=== PATIENT | male | born 1970 | race Caucasian/White ===

== ENCOUNTER 2017-01-19 11:06 | Inpatient (IN) | payer OTHER ==
[2017-01-19 13:21] VITALS: BMI 19.2
--- NOTE | 2017-01-19 17:37 | HP ---
COWS - Scale Resting Pulse: 0= [place] 80 or Below Sweatin= Chills/Flushing Restless Observation: 1= Difficult to Sit Still Pupil Size: 1= Pupils >than Normal Bone or Joint Aches: 1= Mild Discomfort Runny Nose/ Eye Tearin= Nasal Congestion GI Upset > 30mins: 2= Nausea/Diarrhea Tremor Observation: 2= Slight Tremor Visible Yawning Observation: 1= 1-2x During Session Anxiety or Irritability: 2=Irritable/Anxious Goose Flesh Skin: 3=Piloerection COWS Score: 15 Admission [facility] Chief Complaint: heroin withdrawal sx Allergies/Adverse Reactions: Allergies Allergy/AdvReac Type Severity Reaction Status Date / Time No Known Allergies Allergy Verified 01/19/17 15:03 History of Present Illness: 46 yo m with h/o opioi d use disorder, first admission to [place] for detoxification from heroin c/ heroin withdrwal sx. Last used yesterday. Denies alcohol , smokes mairjua and nciotine occasionally. PMHX asthmatic, GERD , bipolar do on meds nbut not taking them no suicidal ideation no suicide attempts in the past. no h/o seizures or DTS. Exam Limitations: No Limitations - Ebola screening Have you traveled outside of the country in the last 21 days: No (N) Have you had contact with anyone from an Ebola affected area: No Have you been sick,other than usual withdrawal symptoms: No Do you have a fever: No - Review of Systems Constitutional: Chills, Diaphoresis, Malaise, Changes in sleep, Unintentional Wgt. Loss EENT: reports: Blurred Vision (right 2/2 trauma as child, scarring noted on exam ), Nose Congestion Respiratory: reports: Wheezing (asthma) Cardiac: reports: No Symptoms Reported GI: reports: Diarrhea, Nausea, Poor Appetite, Poor Fluid Intake, Vomiting, Indigestion, Abdominal cramping : reports: No Symptoms Reported Musculoskeletal: reports: Back Pain, Muscle Pain, Muscle Weakness, Neck Pain ( withdrawl sx) Integumentary: reports: Flushing, Sweating Neuro: reports: Headache (migraine), Numbness, Paresthesia, Tremors, Weakness Endocrine: reports: No Symptoms Reported Hematology: reports: No Symptoms Reported Psychiatric: reports: Judgement Intact, Mood/Affect Appropiate, Orientated x3, Anxious, Depressed Patient History - Patient Medical History Hx Anemia: No Hx Asthma: Yes Hx Chronic Obstructive Pulmonary Disease (COPD): No Hx Cancer: No Hx Cardiac Disorders: No Hx Congestive Heart Failure: No Hx Hypertension: No Hx Hypercholesterolemia: No Hx Pacemaker: No HX Cerebrovascular Accident: No Hx Seizures: No Hx Dementia: No Hx Diabetes: No Hx Gastrointestinal Disorders: Yes (acid reflux) Hx Liver Disease: No Hx Genitourinary Disorders: No Hx Sexually Transmitted Disorders: No Hx Renal Disease (ESRD): No Hx Hepatitis C: No Hx Depression: Yes Hx Suicide Attempt: No Hx Bipolar Disorder: Yes Hx Schizophrenia: No Other Medical History: no suicidal ideation at this time - Patient Surgical History Past Surgical History: Yes Hx Neurologic Surgery: No Hx Cataract Extraction: No Hx Cardiac Surgery: No Hx Lung Surgery: No Hx Breast Surgery: No Hx Breast Biopsy: No Hx Abdominal Surgery: No Hx Appendectomy: No Hx Cholecystectomy: No Hx Genitourinary Surgery: No Hx Section: No Hx Orthopedic Surgery: No Other Surgical History: right eye/fx, right orbit at age 8 Anesthesia Reaction: No - PPD History Previous Implant?: Yes Documented Results: Negative w/o proof Implanted On Prior R Admission?: No PPD to be Administered?: Yes - Reproductive History Patient is a Female of Child Bearing Age (11 -55 yrs old): No Patient : No - Smoking Cessation Smoking history: Current every day smoker Have you smoked in the past 12 months: Yes Aproximately how many cigarettes per day: 5 Hx Chewing Tobacco Use: No Initiated information on smoking cessation: Yes 'Breaking Loose' booklet given: 01/19/17 - Substance & Tx. History Hx Alcohol Use: No Hx Substance Use: Yes Substance Use Type: Heroin, Marijuana, Opiates, Prescribed Hx Substance Use Treatment: Yes (project return , not in treatment at present, 1st episode at [facility]) - Substances Abused Heroin Route: Inhalation Frequency: Daily Amount used: 3-4 bags Age of first use: 27 Date of Last Use: 01/18/17 Marijuana Route: Smoking Frequency: 1-2 times per week Amount used: $10 Age of first use: 14 Date of Last Use: 01/19/17 Family Disease History - Family Disease History Family Disease History: Heart Disease: Father (alcoholism ), Other: Father Admission Physical Exam BHS - Vital Signs Vital Signs: Vital Signs - 24 hr 11/30/17 13:19 Temperature 97.1 F L Pulse Rate 71 Respiratory 20 Rate Blood Pressure 131/65 - Physical General Appearance: Yes: Nourished, Appropriately Dressed, Disheveled, Moderate Distress, Thin, Tremorous, Irritable, Sweating, Anxious HEENTM: Yes: EOMI, Hearing grossly Normal, Normocephalic, Normal Voice, EDILMA, Pharynx Normal, Nasal Congestion, Rhinorrhea Respiratory: Yes: Within Normal Limits, Chest Non-Tender, Lungs Clear, Normal Breath Sounds, No Respiratory Distress, No Accessory Muscle Use Neck: Yes: Within Normal Limits, No masses,lesions,Nodules, Supple, Trachea in good position Breast: Yes: Breast Exam Deferred Cardiology: Yes: Within Normal Limits, Regular Rhythm, Regular Rate, S1, S2 Abdominal: Yes: Normal Bowel Sounds, Non Tender, Soft, Increased Bowel Sounds Genitourinary: Yes: Within Normal Limits Back: Yes: Within Normal Limits, Normal Inspection Musculoskeletal: Yes: full range of Motion, Gait Steady, Pelvis Stable, Back pain, Muscle Pain Extremities: Yes: Normal Capillary Refill, Normal Range of Motion, Non-Tender, Tremors Neurological: Yes: coke oven patcher II-XII NML intact, Fully Oriented, Alert, Motor Strength 5/5, Normal Response, Depressed Affect Integumentary: Yes: Normal Color, Warm, Diaphoresis, Moist Lymphatic: Yes: Within Normal Limits - Addiitonal Findings: opioid withdrawal sx noted. - Diagnostic (1) Opioid dependence with withdrawal Current Visit: Yes Status: Acute (2) Nicotine dependence Current Visit: Yes Status: Acute (3) Anxiety Current Visit: Yes Status: Acute (4) Depression Current Visit: Yes Status: Acute (5) Insomnia Current Visit: Yes Status: Acute (6) Cannabis abuse Current Visit: Yes Status: Acute (7) Asthma Current Visit: Yes Status: Acute Cleared for Admission [facility] - Detox or Rehab [facility] Level of Care: Medically Managed Detox Regimen/Protocol: Methadone [facility] Breath Alcohol Content Breath Alcohol Content: 0 Urine Drug Screen - Results Drug Screen Negative: No Urine Drug Screen Results: THC-Marijuana, OPI-Opiates, MET-Methamphetamine, MTD- Methadone
[2017-01-19] MEDS ORDERED: IBUPROFEN 400 MG TABLET (FP) PO PRN (17:39)
[2017-01-19] MEDS ORDERED: guaiFENesin/D-METHORPHAN HB 10 ML UNIT-DOSE CUPS PO PRN (17:39)
[2017-01-19] MEDS ORDERED: MAGNESIUM CITRATE 300 ML BOTTLE PO PRN (17:39)
[2017-01-19] MEDS ORDERED: MENTHOL/PHENOL 1 EACH UD MM PRN (17:39)
[2017-01-19] MEDS ORDERED: hydrOXYzine PAMOATE 50 MG CAPSULE (FP) PO PRN (17:39)
[2017-01-19] MEDS ORDERED: LOPERAMIDE HCL 2 MG CAPSULE PO PRN (17:39)
[2017-01-19] MEDS ORDERED: MAGNESIUM HYDROX 2400MG/30ML ORAL SUSPENSION 30 ML CUP PO PRN (17:39)
[2017-01-19] MEDS ORDERED: MAG HYDROX/AL HYDROX/SIMETH 30 ML UNIT-DOSE CUP PO PRN (17:39)
[2017-01-19] MEDS ORDERED: P-EPHED 60MG/TRIPROLIDI 2.5MG TABLET PO PRN (17:39)
[2017-01-19] MEDS ORDERED: ALBUTEROL SO4 18 GM HFA INHALER IH PRN (17:41)
[2017-01-19] MEDS ORDERED: ONDANSETRON *ODT* 4 MG TABLET SL PRN (17:46)
[2017-01-19] MEDS ORDERED: METHADONE HCL 10 MG TABLET (FOR DETOX USE ONLY) PO ONE ×2 (18:00→23:00)
[2017-01-19] MEDS ORDERED: ONDANSETRON *ODT* 4 MG TABLET SL ONE (18:00)
[2017-01-19] MEDS: PANTOPRAZOLE 40 MG TABLET (FP) PO SCH (18:25)
[2017-01-19] MEDS: NICOTINE 14 MG/24 HOURS TOPICAL PATCH TD SCH (18:25)
[2017-01-19] MEDS: diazePAM 5 MG TABLET PO PRN ×2 (18:25→22:27)
[2017-01-19] MEDS: THIAMINE HCL 100 MG TABLET (FP) PO SCH (22:27)
[2017-01-20 03:46] LABS: URINE APPEARANCE SLCLOUDY; URINE BILIRUBIN NEGATIVE (NEGATIVE); URINE BLOOD NEGATIVE (NEGATIVE); URINE COLOR YELLOW; URINE GLUCOSE (UA) NEGATIVE (NEGATIVE); URINE KETONE NEGATIVE (NEGATIVE); URINE NITRITE NEGATIVE (NEGATIVE); URINE PROTEIN NEGATIVE (NEGATIVE); URINE UROBILINOGEN NEGATIVE mg/dL (0.2-1.0)
[2017-01-20 09:55] LABS: MCH 29.3 pg (25.7-33.7); MCHC 33.3 g/dl (32.0-35.9); MEAN CELL VOLUME 87.8 fl (80-96); MEAN PLT VOLUME 7.5 fl (7.5-11.1); PLATELET COUNT 576 K/MM3 (134-434); RDW 14.7 % (11.9-15.9); WHITE BLOOD COUNT 12.9 K/mm3 (4.0-10.0)
[2017-01-20] MEDS ORDERED: METHADONE HCL 10 MG TABLET (FOR DETOX USE ONLY) PO ONE (10:00)
--- NOTE | 2017-01-20 10:14 | EKG ---
Test Reason : Blood Pressure : / mmHG Vent. Rate : 072 BPM Atrial Rate : 072 BPM P-R Int : 148 ms QRS Dur : 088 ms QT Int : 386 ms P-R-T Axes : 068 044 060 degrees QTc Int : 422 ms NORMAL SINUS RHYTHM POSSIBLE LEFT ATRIAL ENLARGEMENT EARLY REPOLARIZATION NO PREVIOUS ECGS AVAILABLE Confirmed by CLIFF CACERES, MICHAEL ([id number]) on 01/20/2017 10:14:37 AM Referred By: VINCE BENNETT Confirmed By:MICHAEL CORONADO MD
[2017-01-20 10:17] LABS: URINE LEUK ESTERASE Negative (NEGATIVE)
[2017-01-20] MEDS: diazePAM 5 MG TABLET PO PRN ×2 (10:25→22:19)
[2017-01-20] MEDS: PRENATAL VITAMINS W/ FOLIC ACID TABLET (FP) PO SCH (10:25)
[2017-01-20 10:26] LABS: ALBUMIN 3.9 g/dl (3.4-5.0); ALK PHOS 86 U/L (45-117); ANION GAP 4 (8-16); BILIRUBIN,TOTAL 0.4 mg/dL (0.2-1.0); CALCIUM 9.3 mg/dL (8.5-10.1); CO2 32 mmol/L (21-32); CREATININE 0.8 mg/dL (0.7-1.3); GLUCOSE,RANDOM 115 mg/dL (74-106); SGOT/AST 8 U/L (15-37); SGPT/ALT 16 U/L (12-78); TOT PROT 7.6 g/dl (6.4-8.2)
[2017-01-20] MEDS: PANTOPRAZOLE 40 MG TABLET (FP) PO SCH (10:26)
--- NOTE | 2017-01-20 10:41 | CONSULT ---
[facility] Psychiatric Consult - Data Date of interview: 01/20/17 Admission source: [facility] Identifying data: First admission to [facility] for this 46 y/o male seeking detox treatment on for heroin and marihuana dependence.Patient is single without children,domiciled,unemployed and supported on SSI benefits. Substance Abuse History: Discussed with patient in this session.Confirmed this [facility] report : Smoking history: Current every day smoker. Have you smoked in the past 12 months: Yes. Aproximately how many cigarettes per day: 5. Hx Chewing Tobacco Use: No. Initiated information on smoking cessation: Yes. ' Breaking Loose' booklet given: 01/19/17. - Substance & Tx. History. Hx Alcohol Use: No. Hx Substance Use: Yes. Substance Use Type: Heroin, Marijuana , Opiates, Prescribed. Hx Substance Use Treatment: Yes (project return , not in treatment at present, 1st episode at [facility]). - Substances Abused. Heroin. Route: Inhalation. Frequency: Daily. Amount used: 3-4 bags. Age of first use: 27. Date of Last Use: 01/18/17. Marijuana. Route: Smoking. Frequency: 1-2 times per week. Amount used: $10. Age of first use: 14. Date of Last Use: 01/19/17 Medical History: Bronchial asthma and remote history of surgery for fracture of right orbit (fixed eyelid). Psychiatric History: Diagnosed with Bipolar Disorder.Prescribed seroquel as per self-report." I am on a low dose." Mr Gutierrez indicates that he gets his outpatient [facility] in [facility].Fills his prescriptions at the [facility].No reported history of psychiatric hospitalizations.Patient denies history of suicide attempts. Physical/Sexual Abuse/Trauma History: Patient denies. Additional Comment: Urine Drug Screen Results: THC-Marijuana, OPI-Opiates, MET- Methamphetamine, MTD-Methadone.Noted. Mental Status Exam - Mental Status Exam Alert and Oriented to: Time, Place, Person Cognitive Function: Good Patient Appearance: Unkempt, Disheveled Mood: Hopeful, Euthymic Affect: Appropriate, Normal Range Patient Behavior: Fatigued, Cooperative Speech Pattern: Clear, Appropriate Voice Loudness: Normal Thought Process: Goal Oriented Thought Disorder: Not Present Hallucinations: Denies Suicidal Ideation: Denies Homicidal Ideation: Denies Insight/Judgement: Poor Sleep: Poorly, Difficulty falling asleep Appetite: Good Muscle strength/Tone: Normal Gait/Station: Normal Psychiatric Findings - Problem List ([place] 1, 2,3) (1) Opioid dependence with withdrawal Current Visit: Yes Status: Acute (2) Cannabis abuse Current Visit: Yes Status: Acute (3) Nicotine dependence Current Visit: Yes Status: Acute Qualifiers: Nicotine product type: cigarettes Substance use status: in withdrawal Qualified Code(s): F17.213 - Nicotine dependence, cigarettes, with withdrawal (4) Substance induced mood disorder Current Visit: Yes Status: Acute (5) Insomnia Current Visit: Yes Status: Acute Qualifiers: Insomnia type: unspecified Qualified Code(s): G47.00 - Insomnia, unspecified - Initial Treatment Plan Initial Treatment Plan: Psychoeducation.Detoxification.Sleep hygiene recommended.Contact established with pharmacist at [phone] with patient's verbal authorization : last scripts (zoloft 25 mg/day + zyprexa 10 mg/hs) were picked from [facility] September 2015.Patient admits to chronic non- adherence to medications (no recall of names or doses).Will resume mg po hs and observe response.Side effcst/benfits discussed with the patient.He is in agreement with this careplan.
[2017-01-20] MEDS: NICOTINE 14 MG/24 HOURS TOPICAL PATCH TD SCH (10:56)
--- NOTE | 2017-01-20 11:10 | PN ---
BHS COWS - Scale Resting Pulse: 1= [place] 81-100 Sweatin= Chills/Flushing Restless Observation: 3= Extraneous Movement Pupil Size: 2= Moderately Dilated Bone or Joint Aches: 2= Severe Diffuse Aches Runny Nose/ Eye Tearin= Nasal Congestion GI Upset > 30mins: 0= None Tremor Observation of Outstretched Hands: 1= Tremor [place], Not Seen Yawning Observation: 1= 1-2x During Session Anxiety or Irritability: 2=Irritable/Anxious Goose Flesh Skin: 0=Smooth Skin COWS Score: 14 BHS Progress Note (SOAP) Subjective: ANXIETY,SWEATS/CHILLS,"SLIGHTLY GROGGY". Objective: 01/20/17 11:09 Vital Signs Temperature 98.1 F 01/20/17 10:00 Pulse Rate 67 01/20/17 10:00 Respiratory Rate 18 01/20/17 10:00 Blood Pressure 108/65 01/20/17 10:00 O2 Sat by Pulse Oximetry (%) Laboratory Last Values WBC 12.9 K/mm3 (4.0-10.0) H 01/20/17 06:00 RBC 4.49 M/mm3 (4.00-5.60) 01/20/17 06:00 Hgb 13.1 GM/dL (11.7-16.9) 01/20/17 06:00 Hct 39.4 % (35.4-49) 01/20/17 06:00 MCV 87.8 fl (80-96) 01/20/17 06:00 MCH 29.3 pg (25.7-33.7) 01/20/17 06:00 MCHC 33.3 g/dl (32.0-35.9) 01/20/17 06:00 RDW 14.7 % (11.9-15.9) 01/20/17 06:00 Plt Count 576 K/MM3 (134-434) H 01/20/17 06:00 MPV 7.5 fl (7.5-11.1) 01/20/17 06:00 Sodium 136 mmol/L (136-145) 01/20/17 06:00 Potassium 4.6 mmol/L (3.5-5.1) 01/20/17 06:00 Chloride 100 mmol/L (98-107) 01/20/17 06:00 Carbon Dioxide 32 mmol/L (21-32) 01/20/17 06:00 Anion Gap 4 (8-16) L 01/20/17 06:00 BUN 10 mg/dL (7-18) 01/20/17 06:00 Creatinine 0.8 mg/dL (0.7-1.3) 01/20/17 06:00 Creat Clearance w eGFR > 60 (>60) 01/20/17 06:00 Random Glucose 115 mg/dL (74-106) H 01/20/17 06:00 Calcium 9.3 mg/dL (8.5-10.1) 01/20/17 06:00 Total Bilirubin 0.4 mg/dL (0.2-1.0) 01/20/17 06:00 AST 8 U/L (15-37) L 01/20/17 06:00 ALT 16 U/L (12-78) 01/20/17 06:00 Alkaline Phosphatase 86 U/L (45-117) 01/20/17 06:00 Total Protein 7.6 g/dl (6.4-8.2) 01/20/17 06:00 Albumin 3.9 g/dl (3.4-5.0) 01/20/17 06:00 Urine Color Yellow 01/20/17 00:00 Urine Appearance Slcloudy 01/20/17 00:00 Urine pH 5.0 (5.0-8.0) 01/20/17 00:00 Ur Specific [place] 1.029 (1.001-1.035) 01/20/17 00:00 Urine Protein Negative (NEGATIVE) 01/20/17 00:00 Urine Glucose (UA) Negative (NEGATIVE) 01/20/17 00:00 Urine Ketones Negative (NEGATIVE) 01/20/17 00:00 Urine Blood Negative (NEGATIVE) 01/20/17 00:00 Urine Nitrite Negative (NEGATIVE) 01/20/17 00:00 Urine Bilirubin Negative (NEGATIVE) 01/20/17 00:00 Urine Urobilinogen Negative mg/dL (0.2-1.0) 01/20/17 00:00 Ur Leukocyte Esterase Negative (NEGATIVE) 01/20/17 00:00 Assessment: 01/20/17 11:09 WITHDRAWAL SX Plan: CONTINUE DETOX
[2017-01-20] MEDS: NICOTINE POLACRILEX 2 MG GUM BC PRN (18:13)
[2017-01-20] MEDS: QUEtiapine FUMARATE 50 MG TABLET PO SCH (22:18)
[2017-01-20] MEDS: THIAMINE HCL 100 MG TABLET (FP) PO SCH (22:19)
[2017-01-21] MEDS ORDERED: METHADONE HCL 5 MG TABLET (FOR DETOX USE ONLY) PO ONE (10:00)
[2017-01-21] MEDS: PRENATAL VITAMINS W/ FOLIC ACID TABLET (FP) PO SCH (10:25)
[2017-01-21] MEDS: NICOTINE 14 MG/24 HOURS TOPICAL PATCH TD SCH (10:25)
[2017-01-21] MEDS: PANTOPRAZOLE 40 MG TABLET (FP) PO SCH (10:25)
[2017-01-21] MEDS: NICOTINE POLACRILEX 2 MG GUM BC PRN (10:25)
[2017-01-21] MEDS: diazePAM 5 MG TABLET PO PRN ×2 (10:26→22:28)
--- NOTE | 2017-01-21 16:31 | PN ---
S COWS - Scale Resting Pulse: 0= [place] 80 or Below Sweatin= No chills or Flushing Restless Observation: 3= Extraneous Movement Pupil Size: 0= Normal to Room Light Bone or Joint Aches: 2= Severe Diffuse Aches Runny Nose/ Eye Tearin= Nasal Congestion GI Upset > 30mins: 0= None Tremor Observation of Outstretched Hands: 2= Slight Tremor Visible Yawning Observation: 1= 1-2x During Session Anxiety or Irritability: 2=Irritable/Anxious Goose Flesh Skin: 3=Piloerection COWS Score: 14 S Progress Note (SOAP) Subjective: Body Aches, Anxious, Tremors. Objective: PT. A & O X 3, OBSERVED AMBULATING ON UNITY. NO ACUTE DISTRESS. 01/21/17 16:30 Vital Signs Temperature 96.9 F L 01/21/17 13:12 Pulse Rate 76 01/21/17 13:12 Respiratory Rate 16 01/21/17 13:12 Blood Pressure 98/69 01/21/17 13:12 O2 Sat by Pulse Oximetry (%) Laboratory Tests 01/20/17 01/20/17 01/20/17 00:00 06:00 06:00 WBC 12.9 H RBC 4.49 Hgb 13.1 Hct 39.4 MCV 87.8 MCH 29.3 MCHC 33.3 RDW 14.7 Plt Count 576 H MPV 7.5 Sodium 136 Potassium 4.6 Chloride 100 Carbon Dioxide 32 Anion Gap 4 L BUN 10 Creatinine 0.8 Creat Clearance w eGFR > 60 Random Glucose 115 H Calcium 9.3 Total Bilirubin 0.4 AST 8 L ALT 16 Alkaline Phosphatase 86 Total Protein 7.6 Albumin 3.9 Urine Color Yellow Urine Appearance Slcloudy Urine pH 5.0 Ur Specific [place] 1.029 Urine Protein Negative Urine Glucose (UA) Negative Urine Ketones Negative Urine Blood Negative Urine Nitrite Negative Urine Bilirubin Negative Urine Urobilinogen Negative Ur Leukocyte Esterase Negative RPR Titer 01/20/17 06:00 WBC RBC Hgb Hct MCV MCH MCHC RDW Plt Count MPV Sodium Potassium Chloride Carbon Dioxide Anion Gap BUN Creatinine Creat Clearance w eGFR Random Glucose Calcium Total Bilirubin AST ALT Alkaline Phosphatase Total Protein Albumin Urine Color Urine Appearance Urine pH Ur Specific [place] Urine Protein Urine Glucose (UA) Urine Ketones Urine Blood Urine Nitrite Urine Bilirubin Urine Urobilinogen Ur Leukocyte Esterase RPR Titer Nonreactive LABS NOTED. Assessment: 01/21/17 16:30 WITHDRAWAL SYMPTOMS. Plan: CONTINUE DETOX. PRN FLEXERIL PO FOR MUSCLE SPASMS / BODY ACHES. INCREASE DAILY PO FLUID INTAKE.
[2017-01-21] MEDS: QUEtiapine FUMARATE 50 MG TABLET PO SCH (22:27)
[2017-01-21] MEDS: THIAMINE HCL 100 MG TABLET (FP) PO SCH (22:27)
[2017-01-22] MEDS ORDERED: METHADONE HCL 5 MG TABLET (FOR DETOX USE ONLY) PO ONE (10:00)
[2017-01-22] MEDS: PRENATAL VITAMINS W/ FOLIC ACID TABLET (FP) PO SCH (10:47)
[2017-01-22] MEDS: PANTOPRAZOLE 40 MG TABLET (FP) PO SCH (10:47)
[2017-01-22] MEDS: NICOTINE 14 MG/24 HOURS TOPICAL PATCH TD SCH (10:48)
[2017-01-22] MEDS: diazePAM 5 MG TABLET PO PRN ×2 (10:50→17:09)
[2017-01-22] MEDS: NICOTINE POLACRILEX 2 MG GUM BC PRN (10:52)
--- NOTE | 2017-01-22 13:25 | PN ---
BHS Progress Note (SOAP) Subjective: Tremor, interrupted sleep, body ache, bone pain Objective: 01/22/17 13:22 Last Vital Signs Temp Pulse Resp BP Pulse Ox 97.4 F L 72 18 105/68 01/22/17 13:08 01/22/17 13:08 01/22/17 13:08 01/22/17 13:08 Laboratory Tests 01/20/17 01/20/17 01/20/17 00:00 06:00 06:00 WBC 12.9 H RBC 4.49 Hgb 13.1 Hct 39.4 MCV 87.8 MCH 29.3 MCHC 33.3 RDW 14.7 Plt Count 576 H MPV 7.5 Sodium 136 Potassium 4.6 Chloride 100 Carbon Dioxide 32 Anion Gap 4 L BUN 10 Creatinine 0.8 Creat Clearance w eGFR > 60 Random Glucose 115 H Calcium 9.3 Total Bilirubin 0.4 AST 8 L ALT 16 Alkaline Phosphatase 86 Total Protein 7.6 Albumin 3.9 Urine Color Yellow Urine Appearance Slcloudy Urine pH 5.0 Ur Specific [place] 1.029 Urine Protein Negative Urine Glucose (UA) Negative Urine Ketones Negative Urine Blood Negative Urine Nitrite Negative Urine Bilirubin Negative Urine Urobilinogen Negative Ur Leukocyte Esterase Negative RPR Titer 01/20/17 06:00 WBC RBC Hgb Hct MCV MCH MCHC RDW Plt Count MPV Sodium Potassium Chloride Carbon Dioxide Anion Gap BUN Creatinine Creat Clearance w eGFR Random Glucose Calcium Total Bilirubin AST ALT Alkaline Phosphatase Total Protein Albumin Urine Color Urine Appearance Urine pH Ur Specific [place] Urine Protein Urine Glucose (UA) Urine Ketones Urine Blood Urine Nitrite Urine Bilirubin Urine Urobilinogen Ur Leukocyte Esterase RPR Titer Nonreactive Labs noted: wbc 12.9 Assessment: 01/22/17 13:23 Withdrawal symptoms Noted with leukocytosis Plan: Continue detox Leukocytosis: asymptomatic for infection, repeat CBC
[2017-01-22] MEDS: THIAMINE HCL 100 MG TABLET (FP) PO SCH (22:25)
[2017-01-22] MEDS: CYCLOBENZAPRINE HCL 5 MG TABLET PO PRN (22:25)
[2017-01-22] MEDS: QUEtiapine FUMARATE 50 MG TABLET PO SCH (22:26)
[2017-01-23] MEDS ORDERED: METHADONE HCL 10 MG TABLET (FOR DETOX USE ONLY) PO ONE (10:00)
[2017-01-23 10:01] LABS: BASOPHIL 0.7 % (0-2.0); EOSINOPHIL 4.7 % (0-4.5); MCH 29.2 pg (25.7-33.7); MCHC 33.5 g/dl (32.0-35.9); MEAN CELL VOLUME 87.2 fl (80-96); MEAN PLT VOLUME 7.4 fl (7.5-11.1); NEUTROPHILS 52.1 % (42.8-82.8); PLATELET COUNT 455 K/MM3 (134-434); RDW 14.7 % (11.9-15.9); WHITE BLOOD COUNT 8.3 K/mm3 (4.0-10.0)
[2017-01-23] MEDS: PANTOPRAZOLE 40 MG TABLET (FP) PO SCH (10:28)
[2017-01-23] MEDS: NICOTINE 14 MG/24 HOURS TOPICAL PATCH TD SCH (10:28)
[2017-01-23] MEDS: PRENATAL VITAMINS W/ FOLIC ACID TABLET (FP) PO SCH (10:28)
[2017-01-23] MEDS: NICOTINE POLACRILEX 2 MG GUM BC PRN (10:30)
--- NOTE | 2017-01-23 13:54 | PN ---
BHS Progress Note (SOAP) Subjective: Anxious, sweating, Body Aches, Interrupted Sleep. Objective: PT. A & O X 3, OBSERVED AMBULATING ON UNIT. NO ACUTE DISTRESS. 01/23/17 13:53 Vital Signs Temperature 98.0 F 01/23/17 13:43 Pulse Rate 77 01/23/17 13:43 Respiratory Rate 20 01/23/17 13:43 Blood Pressure 107/64 01/23/17 13:43 O2 Sat by Pulse Oximetry (%) Laboratory Tests 01/20/17 01/20/17 01/20/17 00:00 06:00 06:00 WBC 12.9 H RBC 4.49 Hgb 13.1 Hct 39.4 MCV 87.8 MCH 29.3 MCHC 33.3 RDW 14.7 Plt Count 576 H MPV 7.5 Neutrophils % Lymphocytes % Monocytes % Eosinophils % Basophils % Sodium 136 Potassium 4.6 Chloride 100 Carbon Dioxide 32 Anion Gap 4 L BUN 10 Creatinine 0.8 Creat Clearance w eGFR > 60 Random Glucose 115 H Calcium 9.3 Total Bilirubin 0.4 AST 8 L ALT 16 Alkaline Phosphatase 86 Total Protein 7.6 Albumin 3.9 Urine Color Yellow Urine Appearance Slcloudy Urine pH 5.0 Ur Specific [place] 1.029 Urine Protein Negative Urine Glucose (UA) Negative Urine Ketones Negative Urine Blood Negative Urine Nitrite Negative Urine Bilirubin Negative Urine Urobilinogen Negative Ur Leukocyte Esterase Negative RPR Titer 01/20/17 01/23/17 06:00 07:00 WBC 8.3 D RBC 4.35 Hgb 12.7 Hct 38.0 MCV 87.2 MCH 29.2 MCHC 33.5 RDW 14.7 Plt Count 455 H D MPV 7.4 L Neutrophils % 52.1 Lymphocytes % 30.9 Monocytes % 11.6 H Eosinophils % 4.7 H Basophils % 0.7 Sodium Potassium Chloride Carbon Dioxide Anion Gap BUN Creatinine Creat Clearance w eGFR Random Glucose Calcium Total Bilirubin AST ALT Alkaline Phosphatase Total Protein Albumin Urine Color Urine Appearance Urine pH Ur Specific [place] Urine Protein Urine Glucose (UA) Urine Ketones Urine Blood Urine Nitrite Urine Bilirubin Urine Urobilinogen Ur Leukocyte Esterase RPR Titer Nonreactive LABS NOTED. RESULTS OF REPEAT CBC NOTED. 01/23/17 13:54 Assessment: 01/23/17 13:53 WITHDRAWAL SYMPTOMS. Plan: CONTINUE DETOX. INCREASE DAILY PO FLUID INTAKE.
[2017-01-23] MEDS: THIAMINE HCL 100 MG TABLET (FP) PO SCH (22:10)
[2017-01-23] MEDS: CYCLOBENZAPRINE HCL 5 MG TABLET PO PRN (22:10)
[2017-01-23] MEDS: QUEtiapine FUMARATE 50 MG TABLET PO SCH (22:10)
[2017-01-23] MEDS: ACETAMINOPHEN 325 MG TABLET (FP) PO PRN (22:19)
[2017-01-24] MEDS ORDERED: METHADONE HCL 5 MG TABLET (FOR DETOX USE ONLY) PO ONE (06:00)
[2017-01-24] MEDS: ACETAMINOPHEN 325 MG TABLET (FP) PO PRN (06:09)
[2017-01-24] MEDS: CYCLOBENZAPRINE HCL 5 MG TABLET PO PRN (06:09)
[2017-01-24 09:48] VITALS: BP 107/80; PULSE 82; TEMP 97.4
[2017-01-24] MEDS: NICOTINE 14 MG/24 HOURS TOPICAL PATCH TD SCH (09:54)
[2017-01-24] MEDS: PANTOPRAZOLE 40 MG TABLET (FP) PO SCH (09:54)
[2017-01-24] MEDS: PRENATAL VITAMINS W/ FOLIC ACID TABLET (FP) PO SCH (09:54)
[2017-01-24] MEDS: NICOTINE POLACRILEX 2 MG GUM BC PRN (09:55)
--- NOTE | 2017-01-24 17:36 | DS ---
[facility] Detox Discharge Summary Admission Date: 01/19/17 Discharge Date: 01/24/17 - History Present History: Cannabis Dependence, Opioid Dependence Additional Comments: PATIENT GOING TO [facility] OUTPATIENT DAY PROGRAM FOR AFTERCARE. PATIENT WAS DISCHARGED FROM DETOX UNIT IN STABLE MEDICAL CONDITION. Pertinent Past History: Asthma, Insomnia, Nicotine Dependence, Depression, Bipolar Disorder, GERD. - Physical Exam Results Vital Signs: Vital Signs Temperature 97.4 F L 01/24/17 09:47 Pulse Rate 82 01/24/17 09:47 Respiratory Rate 18 01/24/17 09:47 Blood Pressure 107/80 01/24/17 09:47 O2 Sat by Pulse Oximetry (%) Pertinent Admission Physical Exam Findings: WITHDRAWALSYMPTOMS. Laboratory Tests 01/20/17 01/20/17 01/20/17 00:00 06:00 06:00 WBC 12.9 H RBC 4.49 Hgb 13.1 Hct 39.4 MCV 87.8 MCH 29.3 MCHC 33.3 RDW 14.7 Plt Count 576 H MPV 7.5 Neutrophils % Lymphocytes % Monocytes % Eosinophils % Basophils % Sodium 136 Potassium 4.6 Chloride 100 Carbon Dioxide 32 Anion Gap 4 L BUN 10 Creatinine 0.8 Creat Clearance w eGFR > 60 Random Glucose 115 H Calcium 9.3 Total Bilirubin 0.4 AST 8 L ALT 16 Alkaline Phosphatase 86 Total Protein 7.6 Albumin 3.9 Urine Color Yellow Urine Appearance Slcloudy Urine pH 5.0 Ur Specific [place] 1.029 Urine Protein Negative Urine Glucose (UA) Negative Urine Ketones Negative Urine Blood Negative Urine Nitrite Negative Urine Bilirubin Negative Urine Urobilinogen Negative Ur Leukocyte Esterase Negative RPR Titer 01/20/17 01/23/17 06:00 07:00 WBC 8.3 D RBC 4.35 Hgb 12.7 Hct 38.0 MCV 87.2 MCH 29.2 MCHC 33.5 RDW 14.7 Plt Count 455 H D MPV 7.4 L Neutrophils % 52.1 Lymphocytes % 30.9 Monocytes % 11.6 H Eosinophils % 4.7 H Basophils % 0.7 Sodium Potassium Chloride Carbon Dioxide Anion Gap BUN Creatinine Creat Clearance w eGFR Random Glucose Calcium Total Bilirubin AST ALT Alkaline Phosphatase Total Protein Albumin Urine Color Urine Appearance Urine pH Ur Specific [place] Urine Protein Urine Glucose (UA) Urine Ketones Urine Blood Urine Nitrite Urine Bilirubin Urine Urobilinogen Ur Leukocyte Esterase RPR Titer Nonreactive LABS NOTED. - Treatment Hospital Course: Detox Protocol Followed, Detoxed Safely, Responded well, Discharged Condition Good Patient has Accepted a Rehab Referral to: PT. GOING TO [facility] OUTPATIENT DAY [facility] FOR AFTERCARE. - Medication Discharge Medications: Ambulatory Orders Albuterol Sulfate Inhaler - [Ventolin Hfa Inhaler -] 2 inh PO Q4H PRN #1 inhaler 01/23/17 - Diagnosis (1) Cannabis abuse Status: Chronic (2) Opioid dependence with withdrawal Status: Acute (3) Insomnia Status: Acute Qualifiers: Insomnia type: unspecified Qualified Code(s): G47.00 - Insomnia, unspecified (4) Substance induced mood disorder Status: Acute (5) Asthma Status: Chronic Qualifiers: Asthma severity: mild Asthma persistence: unspecified Asthma complication type: uncomplicated Qualified Code(s): J45.909 - Unspecified asthma, uncomplicated (6) GERD (gastroesophageal reflux disease) Status: Chronic Qualifiers: Esophagitis presence: esophagitis presence not specified Qualified Code(s) : K21.9 - Gastro-esophageal reflux disease without esophagitis (7) Nicotine dependence Status: Chronic Qualifiers: Nicotine product type: cigarettes Substance use status: in withdrawal Qualified Code(s): F17.213 - Nicotine dependence, cigarettes, with withdrawal - AMA Did Patient Leave Against Medical Advice: No
== END 2017-01-24 10:08 | disposition home or self-care (01) | DRG 773 ==
LOC: YASAS 11:06 → Y3N 16:11
PROVIDERS: ADMIT Internal Medicine; ATTEND Internal Medicine
PROC: HZ2ZZZZ Detoxification Services for Substance Abuse Treatment (ICD-10-PCS; principal; 2017-01-19)
PROC: HZ2ZZZZ Detoxification Services for Substance Abuse Treatment (ICD-10-PCS; 2017-01-19)
DX: F11.23 Opioid dependence with withdrawal (principal); F12.10 Cannabis abuse, uncomplicated; F17.210 Nicotine dependence, cigarettes, uncomplicated; F41.9 Anxiety disorder, unspecified; F32.9 Major depressive disorder, single episode, unspecified; F19.24 Other psychoactive substance dependence with psychoactive substance-induced mood disorder; G47.00 Insomnia, unspecified; K21.9 Gastro-esophageal reflux disease without esophagitis; J45.909 Unspecified asthma, uncomplicated; D72.829 Elevated white blood cell count, unspecified
CPT/HCPCS: 36415; 80053; 81003; 85025; 85027; 86593; 93005; 93010

== ENCOUNTER 2023-03-30 11:17 | Inpatient (IN) | payer OTHER ==
[2023-03-30 11:41] VITALS: BMI 18.3
[2023-03-30] MEDS ORDERED: BENZONATATE 200 MG CAPSULE PO PRN (13:30)
[2023-03-30] MEDS ORDERED: POLYETHYLENE GLYCOL (HEALTHYLAX) 3350 17 GM PACKET PO PRN (13:30)
[2023-03-30] MEDS ORDERED: DICYCLOMINE HCL 10 MG CAPSULE PO PRN (13:30)
[2023-03-30] MEDS ORDERED: ACETAMINOPHEN 325 MG TABLET (FP) PO PRN (13:30)
[2023-03-30] MEDS ORDERED: BENZOCAINE/MENTHOL (CHLORASEPTIC ) LOZENGE MM PRN (13:30)
[2023-03-30] MEDS ORDERED: MAG HYDROX/AL HYDROX/SIMETH 30 ML UNIT-DOSE CUP PO PRN (13:30)
[2023-03-30] MEDS ORDERED: LOPERAMIDE HCL 2 MG CAPSULE PO PRN (13:30)
[2023-03-30] MEDS ORDERED: BISMUTH SUBSALICYLATE 524 MG/30 ML PO PRN (13:30)
[2023-03-30] MEDS ORDERED: IBUPROFEN 400 MG TABLET (FP) PO PRN (13:30)
[2023-03-30] MEDS ORDERED: BUPRENORPHINE HCL 150 MCG, BUPRENORPHINE HCL 75 MCG BC PRN (13:30)
[2023-03-30] MEDS ORDERED: NALOXONE HCL 0.4 MG/ML VIAL IM PRN (13:30)
[2023-03-30] MEDS ORDERED: ONDANSETRON *ODT* 4 MG TABLET SL PRN (13:30)
[2023-03-30] MEDS ORDERED: MAGNESIUM HYDROX 2400MG/30ML ORAL SUSPENSION 30 ML CUP PO PRN (13:30)
[2023-03-30] MEDS ORDERED: NALOXONE HCL (KLOXXADO) 8 MG SPRAY NS PRN (13:30)
[2023-03-30] MEDS ORDERED: ALBUTEROL SO4 HFA INHALER IH PRN (13:33)
[2023-03-30] MEDS: BUPRENORPHINE HCL 150 MCG, BUPRENORPHINE HCL 75 MCG BC ONE (14:09)
[2023-03-30] MEDS: cloNIDine HCL 0.1 MG TABLET PO ONE (14:09)
[2023-03-30] MEDS ORDERED: BUPRENORPHINE HCL 150 MCG FILM BC ONE (14:15)
[2023-03-30] MEDS ORDERED: cloNIDine HCL 0.1 MG TABLET ONE (14:16)
[2023-03-30] MEDS ORDERED: BUPRENORPHINE HCL 75 MCG FILM BC ONE (14:16)
[2023-03-30] MEDS: PRENATAL VITAMINS W/ FOLIC ACID TABLET (FP) PO SCH (14:28)
[2023-03-30] MEDS: NICOTINE 14 MG/24 HOURS TOPICAL PATCH TD SCH (14:28)
[2023-03-30] MEDS ORDERED: PRENATAL VITAMINS W/ FOLIC ACID TABLET (FP) PO ONE (14:32)
[2023-03-30] MEDS ORDERED: NICOTINE 14 MG/24 HOURS TOPICAL PATCH TD ONE (14:32)
[2023-03-30] MEDS: MELATONIN 5 MG TABLETS PO SCH (22:08)
[2023-03-30] MEDS: diazePAM 5 MG TABLET PO PRN (22:08)
[2023-03-30] MEDS: THIAMINE HCL 100 MG TABLET (FP) PO SCH (22:08)
[2023-03-31] MEDS ORDERED: BUPRENORPHINE HCL 150 MCG, BUPRENORPHINE HCL 75 MCG BC PRN
[2023-03-31] MEDS: BUPRENORPHINE HCL 150 MCG, BUPRENORPHINE HCL 75 MCG BC SCH (05:29)
[2023-03-31] MEDS: NICOTINE POLACRILEX 2 MG GUM BUC PRN (10:26)
[2023-03-31 10:36] LABS: HEMATOCRIT 38.1 % (35.4-49); HEMOGLOBIN 13.1 GM/dL (11.7-16.9); MCH 29.9 pg (25.7-33.7); MCHC 34.3 g/dl (32.0-35.9); MEAN CELL VOLUME 87.3 fl (80-96); MEAN PLT VOLUME 7.7 fl (7.5-11.1); PLATELET COUNT 387 10^3/uL (134-434); RBC 4.36 M/mm3 (4.00-5.60); RDW 15.1 % (11.9-15.9); WHITE BLOOD COUNT 5.9 K/mm3 (4.0-10.0)
[2023-03-31 10:42] LABS: POTASSIUM 4.3 mmol/L (3.5-5.1)
[2023-03-31 10:44] LABS: ALBUMIN 3.5 g/dl (3.4-5.0); CALCIUM 9.2 mg/dL (8.5-10.1)
[2023-03-31 10:45] LABS: BLOOD UREA NITROGEN 8.1 mg/dL (7-18)
[2023-03-31 10:48] LABS: CREATININE 0.7 mg/dL (0.55-1.3)
[2023-03-31 10:49] LABS: BILIRUBIN,TOTAL 0.4 mg/dL (0.2-1); TOT PROT 6.4 g/dl (6.4-8.2)
[2023-03-31] MEDS: cloNIDine HCL 0.1 MG TABLET PO PRN (17:34)
[2023-04-01] MEDS: BUPRENORPHINE HCL 450 MCG FILM BC SCH (05:42)
[2023-04-01] MEDS: hydrOXYzine PAMOATE 25 MG CAPSULE (FP) PO PRN (10:18)
[2023-04-01] MEDS: METHOCARBAMOL 500 MG TABLET PO PRN (10:19)
[2023-04-01] MEDS: IBUPROFEN 600 MG TABLET (FP) PO PRN (17:24)
[2023-04-01] MEDS: guaiFENesin 600 MG TABLET.ER (FP) PO PRN (22:33)
[2023-04-02] MEDS: BUPRENORPHINE/NALOXONE 4 MG/1 MG FILM PACKET SL SCH (05:55)
[2023-04-02] MEDS: diazePAM 5 MG TABLET PO ONE (13:18)
[2023-04-02 21:25] VITALS: RESP 18
[2023-04-03] MEDS: BUPRENORPHINE/NALOXONE 8 MG/2 MG FILM PACKET SL ONE (05:21)
[2023-04-03 09:41] VITALS: BP 115/96; PULSE 88; TEMP 98
== END 2023-04-03 12:22 | disposition other institution (70) | DRG 773 ==
LOC: YASAS 11:17 → Y6N 13:46
PROVIDERS: ADMIT Allergy & Immunology; ATTEND Surgery
PROC: HZ2ZZZZ Detoxification Services for Substance Abuse Treatment (ICD-10-PCS; principal; 2023-03-30)
DX: F11.23 Opioid dependence with withdrawal (principal); F12.10 Cannabis abuse, uncomplicated; F17.210 Nicotine dependence, cigarettes, uncomplicated; F31.9 Bipolar disorder, unspecified; F19.282 Other psychoactive substance dependence with psychoactive substance-induced sleep disorder; J45.20 Mild intermittent asthma, uncomplicated; Z28.310 Unvaccinated for COVID-19; Z28.9 Immunization not carried out for unspecified reason
CPT/HCPCS: 36415; 80053; 85027; 86780; 87635; 93005; 93010

== ENCOUNTER 2023-04-03 12:27 | Inpatient (IN) | payer OTHER ==
[2023-04-03] MEDS ORDERED: MAG HYDROX/AL HYDROX/SIMETH 30 ML UNIT-DOSE CUP PO PRN (14:17)
[2023-04-03] MEDS ORDERED: METHOCARBAMOL 500 MG TABLET PO PRN (14:17)
[2023-04-03] MEDS ORDERED: NALOXONE HCL 0.4 MG/ML VIAL IVPUSH PRN (14:17)
[2023-04-03] MEDS ORDERED: NALOXONE HCL (KLOXXADO) 8 MG SPRAY NS PRN (14:17)
[2023-04-03] MEDS ORDERED: POLYETHYLENE GLYCOL (HEALTHYLAX) 3350 17 GM PACKET PO PRN (14:17)
[2023-04-03] MEDS ORDERED: BENZONATATE 200 MG CAPSULE PO PRN (14:17)
[2023-04-03] MEDS ORDERED: guaiFENesin 600 MG TABLET.ER (FP) PO PRN (14:17)
[2023-04-03] MEDS ORDERED: BENZOCAINE/MENTHOL (CHLORASEPTIC ) LOZENGE MM PRN (14:17)
[2023-04-03] MEDS ORDERED: NICOTINE 21 MG/24 HOURS TOPICAL PATCH TD PRN (14:17)
[2023-04-03] MEDS ORDERED: ACETAMINOPHEN 325 MG TABLET (FP) PO PRN (14:17)
[2023-04-03] MEDS ORDERED: LOPERAMIDE HCL 2 MG CAPSULE PO PRN (14:17)
[2023-04-03] MEDS: PRENATAL VITAMINS W/ FOLIC ACID TABLET (FP) PO SCH (14:34)
[2023-04-03] MEDS: THIAMINE HCL 100 MG TABLET (FP) PO SCH (21:07)
[2023-04-03] MEDS: MELATONIN 5 MG TABLETS PO SCH (21:07)
[2023-04-03] MEDS: IBUPROFEN 600 MG TABLET (FP) PO PRN (21:07)
[2023-04-04] MEDS: BUPRENORPHINE/NALOXONE 8 MG/2 MG FILM PACKET SL SCH (10:21)
[2023-04-04] MEDS: NICOTINE 21 MG/24 HOURS TOPICAL PATCH TD PRN (13:43)
[2023-04-04] MEDS: ALBUTEROL SO4 HFA INHALER IH PRN (16:55)
[2023-04-04] MEDS: hydrOXYzine PAMOATE 25 MG CAPSULE (FP) PO PRN (21:03)
[2023-04-07] MEDS ORDERED: BENZOCAINE 20 % GEL TUBE MM PRN (12:40)
[2023-04-07] MEDS: AMOX TR/POT CLAV 500MG/125MG TABLETS (FP) PO SCH (16:47)
[2023-04-08] MEDS: MAGNESIUM HYDROX 2400MG/30ML ORAL SUSPENSION 30 ML CUP PO PRN (10:08)
[2023-04-08] MEDS: AMMONIUM LACTATE 12% LOTION 225 GM BOTTLE TP SCH (10:38)
[2023-04-09] MEDS: IBUPROFEN 400 MG TABLET (FP) PO PRN (16:47)
[2023-04-10] MEDS: MELATONIN 5 MG TABLETS PO SCH (21:15)
[2023-04-11] MEDS: SERTRALINE HCL 50 MG TABLET (FP) PO SCH (09:49)
[2023-04-11] MEDS: BUPRENORPHINE/NALOXONE 8 MG/2 MG FILM PACKET SL SCH (09:49)
[2023-04-12] MEDS: NICOTINE 14 MG/24 HOURS TOPICAL PATCH TD PRN (09:42)
[2023-04-15 08:35] VITALS: RESP 17
[2023-04-17 06:58] VITALS: BP 118/58; PULSE 61; TEMP 97.3
== END 2023-04-17 09:44 | disposition home or self-care (01) | DRG 772 ==
LOC: YASAS 12:27 → Y3W 12:31
PROVIDERS: ADMIT Allergy & Immunology; ATTEND Psychiatry & Neurology Pain Medicine
PROC: HZ42ZZZ Group Counseling for Substance Abuse Treatment, Cognitive-Behavioral (ICD-10-PCS; principal; 2023-04-03)
DX: F11.20 Opioid dependence, uncomplicated (principal); F12.10 Cannabis abuse, uncomplicated; F17.210 Nicotine dependence, cigarettes, uncomplicated; F31.9 Bipolar disorder, unspecified; F43.10 Post-traumatic stress disorder, unspecified; J45.20 Mild intermittent asthma, uncomplicated; K04.7 Periapical abscess without sinus; L85.3 Xerosis cutis
CPT/HCPCS: 36415; 86803